=== PATIENT | female | born 1975 | race Caucasian/White ===

== ENCOUNTER 2022-10-13 22:10 | Emergency (ER) | payer MEDICAID ==
[~2022-10-13] VITALS: Ht 165.1 cm; Wt 61.4 kg
[2022-10-14] MEDS ORDERED: HYDROcodone/acetaminophen 10/325mg tab PO ONE (00:10)
[2022-10-14] MEDS ORDERED: DOXYCYCLINE 100MG CAPSULE PO STA (00:11)
[2022-10-14] MEDS ORDERED: HYDR-3972 PO (00:19)
[2022-10-14] MEDS ORDERED: NYST1000 PO (00:19)
[2022-10-14] MEDS ORDERED: DOXY-135 PO (00:19)
[2022-10-14] MEDS ORDERED: LORA-269 PO (00:19)
[2022-10-14 00:27] VITALS: BP 116/67
== END 2022-10-14 00:43 | disposition home or self-care (01) ==
LOC: ER 22:11
DX: L10.0 Pemphigus vulgaris (principal); F41.9 Anxiety disorder, unspecified; B37.0 Candidal stomatitis; Z88.2 Allergy status to sulfonamides; Z79.899 Other long term (current) drug therapy
CPT/HCPCS: 99283; A4565